=== PATIENT | female | born 1970 | race Asian ===

== ENCOUNTER 2020-02-17 17:29 | Emergency (ER) | payer OTHER ==
[~2020-02-17] VITALS: Ht 172.7 cm; Wt 83.9 kg
[2020-02-17 18:26] LABS: PLATELET COUNT 311 K/uL (152-353)
[2020-02-17 18:52] LABS: POTASSIUM 4.1 mmol/L (3.6-5.2)
[2020-02-17 20:25] VITALS: BP 120/70; TEMP 101
== END 2020-02-17 20:25 | disposition home or self-care (01) ==
LOC: ED 17:29
PROVIDERS: Family Medicine
DX: A08.4 Viral intestinal infection, unspecified (principal)
CPT/HCPCS: 36415; 80053; 82150; 83690; 85027; 87635; 99283; J2405; U0003

== ENCOUNTER 2020-03-09 08:11 | Emergency (ER) | payer OTHER ==
[~2020-03-09] VITALS: Ht 172.7 cm; Wt 83.9 kg
[2020-03-09 08:37] VITALS: TEMP 97
[2020-03-09 08:59] LABS: PLATELET COUNT 322 K/uL (152-353)
[2020-03-09 09:05] LABS: POTASSIUM 4.6 mmol/L (3.6-5.2)
[2020-03-09 09:40] VITALS: BP 118/68
== END 2020-03-09 09:41 | disposition home or self-care (01) ==
LOC: ED 08:11
PROVIDERS: Family Medicine
DX: U07.1 COVID-19 (principal); R05 Cough
CPT/HCPCS: 80053; 85027; 87502; 87635; 87651; 99283; U0003

== ENCOUNTER 2020-07-08 23:05 | Emergency (ER) | payer OTHER ==
[~2020-07-08] VITALS: Ht 172.7 cm; Wt 100.2 kg
[2020-07-09 01:10] VITALS: BP 139/86; TEMP 98.1
== END 2020-07-09 01:10 | disposition home or self-care (01) ==
LOC: ED 23:05
DX: H00.11 Chalazion right upper eyelid (principal)
CPT/HCPCS: 99282